=== PATIENT | female | born 2000 | race Caucasian/White ===

== ENCOUNTER 2023-09-18 20:10 | Emergency (ER) | payer OTHER ==
[2023-09-18] MEDS: Ketorolac 30 MG/ML SDV IVPUSH ONE ×2 (20:54→21:50)
[2023-09-18] MEDS: Sodium Chloride 0.9% 2.5 ML Syringe FLUSH PRN (20:55)
[2023-09-18 20:56] LABS: BASOPHILS ABSOLUTE AUTO 0.02 K/uL (0.00-0.20); BASOPHILS PERCENT AUTO 0.2 % (0.0-1.0); EOSINOPHILS ABSOLUTE AUTO 0.22 K/uL (0.00-0.45); EOSINOPHILS PERCENT AUTO 2.1 % (0.0-6.0); HEMATOCRIT 36.3 % (37.0-47.0); HEMOGLOBIN 13.2 g/dL (12.0-16.0); IMMATURE GRAN ABSOLUTE AUTO 0.02 K/uL (0.00-0.05); IMMATURE GRAN PERCENT AUTO 0.2 % (0.0-0.4); LYMPHOCYTES ABSOLUTE AUTO 2.49 K/uL (1.00-4.80); LYMPHOCYTES PERCENT AUTO 23.3 % (24.0-44.0); MEAN CORPUSCULAR HEMOGLOBIN 31.3 pg (28.0-32.0); MEAN CORPUSCULAR HGB CONC 36.4 g/dL (32.0-36.0); MONOCYTES PERCENT AUTO 9.4 % (0.0-8.0); NEUTROPHILS ABSOLUTE AUTO 6.93 K/uL (1.80-7.70); NEUTROPHILS PERCENT AUTO 64.8 % (41.0-71.0); PLATELET COUNT,PLT 267 K/uL (150-400); RED BLOOD CELL COUNT 4.22 M/uL (4.10-5.30); WHITE BLOOD CELL COUNT,WBC 10.68 K/uL (3.9-11.3)
[2023-09-18] MEDS: Sodium Chloride 0.9% 10 ML Syringe FLUSH PRN (20:56)
[2023-09-18 21:29] LABS: A/G RATIO 1.3 (0.9-1.6); ALBUMIN 4.3 g/dL (3.4-5.0); BILIRUBIN TOTAL 0.5 mg/dL (0.2-1.0); CALCIUM 9.1 mg/dL (8.5-10.1); CARBON DIOXIDE,CO2 23.7 mmol/L (21.0-32.0); CREATININE 0.8 mg/dL (0.6-1.0); EST CRCL DRUG DOSING (CG) 82.23 mL/min; POTASSIUM,K 3.6 mmol/L (3.5-5.1); PROTEIN TOTAL,TP 7.5 g/dL (6.4-8.2)
[2023-09-18] MEDS: Lidocaine 4% 1 each Patch TOP ONE (21:45)
== END 2023-09-18 22:06 | disposition home or self-care (01) ==
LOC: MW.ED 20:10
DX: R06.89 Other abnormalities of breathing (principal); Z75.8 Other problems related to medical facilities and other health care
CPT/HCPCS: 36415; 71046; 71046-26; 80053; 84484; 84703; 85025; 85379; 93005; 93010; 96374; 99284; 99285-25; A9270-GY; J1885; J3490

== ENCOUNTER 2024-07-25 07:42 | Inpatient (IN) | payer OTHER, BC ==
[2024-07-25] MEDS ORDERED: Methylergonovine 0.2 MG/1 ML Amp IM PRN (07:55)
[2024-07-25] MEDS ORDERED: Butorphanol 1 MG/ML SDV IVPUSH PRN (07:55)
[2024-07-25] MEDS ORDERED: Carboprost Tromethamine 250 MCG/1 mL Vial IM PRN ×2 (07:55→23:30)
[2024-07-25] MEDS ORDERED: Water For Irrigation,Sterile 1,000 ML Container IRR PRN (07:55)
[2024-07-25] MEDS ORDERED: Sodium Chloride 0.9% 20 ML SDV IV PRN (07:55)
[2024-07-25] MEDS ORDERED: Sodium Chloride 0.9% 2.5 ML Syringe FLUSH PRN ×2 (07:55→21:47)
[2024-07-25] MEDS ORDERED: Misoprostol 200 MCG Tab RECTAL PRN ×2 (07:55→23:30)
[2024-07-25] MEDS ORDERED: Lidocaine 1% 50 ML MDV INJECT PRN (07:55)
[2024-07-25] MEDS ORDERED: Misoprostol 200 MCG Tab PO PRN (07:55)
[2024-07-25] MEDS ORDERED: Sodium Chloride 0.9% 10 ML Syringe FLUSH PRN ×2 (07:55→21:47)
[2024-07-25] MEDS ORDERED: Misoprostol 25 MCG (1/4 of 100 MCG) Tab VAG PRN (07:58)
[2024-07-25] MEDS ORDERED: Misoprostol 25 MCG (1/4 of 100 MCG) Tab PO PRN (07:58)
[2024-07-25] MEDS ORDERED: Terbutaline 1 MG/ML SDV SUBCUT PRN (07:58)
[2024-07-25] MEDS ORDERED: Oxytocin/0.9 % Sodium Chloride 30 UNIT/500 ML BAG IV SCH ×2 (08:00→23:30)
[2024-07-25] MEDS: Lactated Ringers 1,000 ML IV SCH (08:36)
[2024-07-25 09:30] LABS: HEMATOCRIT 33.9 % (37.0-47.0); MEAN CORPUSCULAR HEMOGLOBIN 32.4 pg (28.0-32.0); MEAN CORPUSCULAR HGB CONC 35.4 g/dL (32.0-36.0); MEAN CORPUSCULAR VOLUME 91.6 fL (83.0-99.0); MEAN PLATELET VOLUME 9.3 fL (9.4-12.3); PLATELET COUNT,PLT 245 K/uL (150-400); WHITE BLOOD CELL COUNT,WBC 10.59 K/uL (3.9-11.3)
[2024-07-25] MEDS: Oxytocin/0.9 % Sodium Chloride 30 UNIT/500 ML BAG IV SCH (09:47)
[2024-07-25] MEDS: Ondansetron 4 MG/2 ML SDV IVPUSH PRN (15:51)
[2024-07-25] MEDS: Ropivacaine HCl/PF 400 MG in Premix Bag 1 BAG EPIDUR SCH (16:02)
[2024-07-25] MEDS ORDERED: ePHEDrine 50 MG/ML SDV IVPUSH PRN (16:31)
[2024-07-25] MEDS ORDERED: Phenylephrine HCl In 0.9% NaCl 1 MG/10 ML Syringe IVPUSH PRN (16:31)
[2024-07-25] MEDS ORDERED: dexmedeTOMIDine HCl 200 MCG/2 ML SDV EPIDUR SCH (16:45)
[2024-07-25] MEDS: Phenylephrine HCl In 0.9% NaCl 1 MG/10 ML Syringe ONE (18:07)
[2024-07-25] MEDS: Ropivacaine HCl/PF 200 ML ONE (18:07)
[2024-07-25] MEDS: dexmedeTOMIDine HCl 200 MCG/2 ML SDV ONE (18:07)
[2024-07-25] MEDS: Bupivacaine 0.5% 10 ML SDV ONE (18:08)
[2024-07-25] MEDS ORDERED: Tranexamic Acid in NACL,ISO-OS 1,000 MG in Premix Bag 1 BAG IV ONE (18:47)
[2024-07-25] MEDS ORDERED: Ondansetron 4 MG/2 ML SDV IVPUSH PRN (23:30)
[2024-07-26] MEDS ORDERED: Docusate Sodium 100 MG Cap PO PRN (00:36)
[2024-07-26] MEDS: Lanolin 100% Cream 7 GM Tube TOP PRN (03:20)
[2024-07-26] MEDS: Benzocaine/Menthol 20%-0.5% Spray 78 GM Cannister TOP PRN (03:21)
[2024-07-26] MEDS: Witch Hazel Medicated Pads 40/Jar TOP PRN (03:21)
[2024-07-26] MEDS: Ibuprofen 800 MG Tab PO PRN (03:21)
[2024-07-26] MEDS: Acetaminophen 500 MG Tab PO PRN (05:19)
[2024-07-26 05:57] LABS: BASOPHILS ABSOLUTE AUTO 0.02 K/uL (0.00-0.20); BASOPHILS PERCENT AUTO 0.1 % (0.0-1.0); EOSINOPHILS ABSOLUTE AUTO 0.05 K/uL (0.00-0.45); EOSINOPHILS PERCENT AUTO 0.3 % (0.0-6.0); HEMATOCRIT 27.2 % (37.0-47.0); HEMOGLOBIN 9.6 g/dL (12.0-16.0); IMMATURE GRAN ABSOLUTE AUTO 0.06 K/uL (0.00-0.05); IMMATURE GRAN PERCENT AUTO 0.4 % (0.0-0.4); LYMPHOCYTES ABSOLUTE AUTO 1.87 K/uL (1.00-4.80); LYMPHOCYTES PERCENT AUTO 12.1 % (24.0-44.0); MEAN CORPUSCULAR HGB CONC 35.3 g/dL (32.0-36.0); MEAN CORPUSCULAR VOLUME 93.5 fL (83.0-99.0); MEAN PLATELET VOLUME 9.3 fL (9.4-12.3); MONOCYTES ABSOLUTE AUTO 1.35 K/uL (0.00-0.80); MONOCYTES PERCENT AUTO 8.7 % (0.0-8.0); NEUTROPHILS ABSOLUTE AUTO 12.15 K/uL (1.80-7.70); NEUTROPHILS PERCENT AUTO 78.4 % (41.0-71.0); PLATELET COUNT,PLT 179 K/uL (150-400); RED BLOOD CELL COUNT 2.91 M/uL (4.10-5.30)
[2024-07-26] MEDS: Docusate Sodium 100 MG Cap PO SCH (09:19)
[2024-07-26] MEDS ORDERED: Ibuprofen 800 MG Tab PO PRN (23:30)
[2024-07-26] MEDS ORDERED: Acetaminophen 500 MG Tab PO PRN (23:30)
[2024-07-27] MEDS: Diphtheria,Pertussis(Acell),Tetanus Vaccine 0.5 ML Syringe IM ONE (07:24)
[2024-07-27] MEDS: Methylergonovine 0.2 MG/1 ML Amp IM ONE (07:25)
[2024-07-27] MEDS: Measles, Mumps & Rubella Vaccine 0.5 ML SDV SUBCUT ONE (07:25)
== END 2024-07-27 12:23 | disposition home or self-care (01) | DRG 807 ==
LOC: MW.OB 07:42 → OBSVTOIN 23:28 → MW.OB 07-26 01:51
PROVIDERS: ADMIT Obstetrics & Gynecology Obstetrics; ATTEND Obstetrics & Gynecology Obstetrics
PROC: 10E0XZZ Delivery of Products of Conception, External Approach (ICD-10-PCS; principal; 2024-07-25)
PROC: 3E0R3BZ Introduction of Anesthetic Agent into Spinal Canal, Percutaneous Approach (ICD-10-PCS; 2024-07-25)
PROC: 0HQ9XZZ Repair Perineum Skin, External Approach (ICD-10-PCS; 2024-07-25)
DX: O70.0 First degree perineal laceration during delivery (principal); Z37.0 Single live birth; Z98.890 Other specified postprocedural states; Z79.899 Other long term (current) drug therapy; Z3A.38 38 weeks gestation of pregnancy
CPT/HCPCS: 36415; 51702; 59025; 59409; 85025; 85027; 86592; 86850; 86900; 86901; A9270-GY; J0665; J2405; J2590; J2795; J7120